=== PATIENT | female | born 1965 | race Hispanic/Latino ===

== ENCOUNTER 2020-12-14 16:02 | Emergency (ER) | payer OTHER ==
[~2020-12-14] VITALS: Ht 162.6 cm; Wt 77.1 kg
[2020-12-14 17:54] VITALS: BP 144/84
[2020-12-14] MEDS ORDERED: DIAZEPAM 5 MG TABLET PO ONE (18:30)
[2020-12-14] MEDS ORDERED: FENTANYL CITRATE PF 50 MCG/1 ML 2ML VIAL IVP ONE (18:30)
[2020-12-14 19:19] VITALS: BP 121/72
[2020-12-14] MEDS ORDERED: NAPR-1180 PO (19:43)
[2020-12-14] MEDS ORDERED: CYCL10 PO (19:43)
[2020-12-14] MEDS ORDERED: TRAM1TAB PO (19:43)
== END 2020-12-14 20:46 | disposition home or self-care (01) ==
LOC: EDH 16:02
DX: M54.42 Lumbago with sciatica, left side (principal); E11.9 Type 2 diabetes mellitus without complications
CPT/HCPCS: 72131; 96374; 99284; J3010